=== PATIENT | female | born 1970 | race Hispanic/Latino ===

== ENCOUNTER 2019-05-21 20:47 | Inpatient (IN) ==
[2019-05-21] MEDS ORDERED: NS 1,000 ML IV ONE ×2 (21:24→23:32)
[2019-05-21] MEDS ORDERED: TORADOL IV ONE (21:24)
[2019-05-21] MEDS ORDERED: VALIUM PO ONE (21:24)
[2019-05-21] MEDS ORDERED: REGLAN IV ONE (21:25)
[2019-05-21 21:39] LABS: BASO# 0.09 X1000 (0.0-0.2); BASO% 0.8 % (0.0-0.8); EOS# 0.98 X1000 (0.0-0.7); EOS% 8.8 % (0.0-10.0); HEMOGLOBIN 9.6 g/dL (12.0-16.0); IMM GRAN# 0.06 X1000 (0.0-0.04); IMM GRAN% 0.5 % (0.0-0.5); LYMPH# 3.06 X1000 (1.2-3.4); LYMPH% 27.4 % (20.5-51.1); MCH 26.1 PG (27-31); MCV 81.5 FL (81-99); MONO# 0.57 X1000 (0.11-0.59); MONO% 5.1 % (1.7-9.3); MPV 10.6 FL (7.4-10.4); NEUT# 6.41 X1000 (1.4-6.5); NEUT% 57.4 % (42.2-75.2); PLT 314 X1000 (130-400); RBC 3.68 XMIL (4.2-5.4); RDW 14.9 % (11.5-14.5); WBC 11.17 X1000 (4.8-10.8)
--- NOTE | 2019-05-21 21:55 | Diag Imaging Result Doc PS360 ---
EXAM: CT HEAD W/O CONTRAST INDICATION: DIZZINESS TECHNIQUE: This exam was performed using automated exposure control, adjustment of mA or kV according to patient size, and/or use of iterative reconstruction technique. COMPARISON: None. FINDINGS: There is prominent right occipital lobe encephalomalacia and there is mild left frontal lobe encephalomalacia. There is no definite acute infarct given the limited sensitivity of CT versus MRI. There is no discrete intracranial mass, mass effect, or intracranial hemorrhage. There is very mild left maxillary and left ethmoid sinus mucosal thickening. Surrounding soft tissues and bony structures are essentially unremarkable, otherwise. IMPRESSION: Right occipital and left frontal encephalomalacia. No definite acute intracranial pathology by CT. Electronically signed by John Quiroga 05/21/2019 9:53 PM
[2019-05-21 22:16] LABS: AGAP 13; ALBUMIN 3.5 g/dL (3.5-5.0); ALKALINE PHOSPHATASE 97 U/L (32-104); BUN 75 mg/dL (8-22); CHLORIDE 104 mmol/L (98-107); COSMO 296; CREATININE 3.8 mg/dL (0.5-0.9); ESTIMATED GFR 13; GLUCOSE 192 mg/dL (70-104); GOT 12 U/L (10-30); GPT 5 U/L (10-36); POTASSIUM 5.1 mmol/L (3.5-5.1); SODIUM 134 mmol/L (136-145); TCO2 17 mmol/L (25-35); TOTAL BILIRUBIN < 0.15 mg/dL (0.20-1.00); TOTAL PROTEIN 6.7 g/dL (6.3-8.3)
[2019-05-21] MEDS ORDERED: ZOFRAN IV PRN (23:33)
[2019-05-21] MEDS ORDERED: MORPHINE IV PRN (23:33)
--- NOTE | 2019-05-22 00:10 | EKG Report ---
Test Performed on : 05/21/2019 9:09:13 PM Test Reason : DIZZINESS Blood Pressure : / mmHG Vent. Rate : 084 BPM Atrial Rate : 084 BPM P-R Int : 152 ms QRS Dur : 072 ms QT Int : 386 ms P-R-T Axes : 033 -02 087 degrees QTc Int : 456 ms Normal sinus rhythm. Possible Left atrial enlargement Left ventricular hypertrophy Abnormal ECG No previous ECGs available Unconfirmed Result
[2019-05-22] MEDS ORDERED: APRESOLINE IV ONE (00:54)
[2019-05-22] MEDS ORDERED: APRESOLINE IV PRN (00:57)
[2019-05-22 01:28] LABS: UR CREAT RANDOM 22.9 mg/dL (11-20); UR PROT RANDOM 308.8 mg/dL
[2019-05-22] MEDS: TYLENOL PO PRN ×2 (02:01→14:06)
--- NOTE | 2019-05-22 10:24 | Diag Imaging Result Doc PS360 ---
EXAM: US RENAL 2 (RETROPER) COMPLETE HISTORY: aidee TECHNIQUE: Real-time transabdominal evaluation of the kidneys and bladder. Standard protocol. COMPARISON: None. FINDINGS: Right kidney: 11.7 centimeters in length. Renal echotexture is normal. There is no hydronephrosis, nephrolithiasis, or focal renal mass. Left kidney: 10.8 centimeters in length. Renal echotexture is normal. There is no hydronephrosis, nephrolithiasis, or focal renal mass. Bladder: No focal abnormality is appreciated. IMPRESSION: Normal renal ultrasound. Electronically signed by Marli Rodriguez 05/22/2019 10:22 AM
[2019-05-22] MEDS: HUMULIN R SUBQ SCH ×3 (12:04→22:21)
[2019-05-22] MEDS: NORVASC PO SCH (12:04)
[2019-05-22 12:13] LABS: BASO# 0.08 X1000 (0.0-0.2); BASO% 0.9 % (0.0-0.8); EOS# 0.67 X1000 (0.0-0.7); EOS% 7.3 % (0.0-10.0); HEMATOCRIT 27.8 % (37.0-47.0); IMM GRAN# 0.04 X1000 (0.0-0.04); IMM GRAN% 0.4 % (0.0-0.5); LYMPH# 2.31 X1000 (1.2-3.4); LYMPH% 25.2 % (20.5-51.1); MCH 26.3 PG (27-31); MCHC 32.4 g/dL (33-37); MCV 81.3 FL (81-99); MONO# 0.43 X1000 (0.11-0.59); MONO% 4.7 % (1.7-9.3); MPV 10.2 FL (7.4-10.4); NEUT# 5.65 X1000 (1.4-6.5); NEUT% 61.5 % (42.2-75.2); PLT 298 X1000 (130-400); RBC 3.42 XMIL (4.2-5.4); RDW 14.9 % (11.5-14.5); WBC 9.18 X1000 (4.8-10.8)
[2019-05-22 12:32] LABS: HEMOGLOBIN A1C 9.4 % (4.8-6.0)
[2019-05-22 12:40] LABS: CALCIUM 7.9 mg/dL (8.8-10.2); CREATININE 3.4 mg/dL (0.5-0.9); POTASSIUM 5.1 mmol/L (3.5-5.1)
--- NOTE | 2019-05-22 12:40 | HISTORY AND PHYSICAL ---
PRIMARY CARE PROVIDER: LINA Castillo CHIEF COMPLAINT: Dizziness, headache, nausea that has been intermittent over the past week and progressively worsened. HISTORY OF PRESENTING ILLNESS: This is a 49-year-old female who presents to [facility] ER with a 1-week history of intermittent dizziness, headache, and nausea that have progressively worsened. States these symptoms happened previously about 3 months ago and then resolved. Denied any chest pain, shortness of breath, or vomiting. Workup showed a blood pressure on arrival of 211/94, a BUN of 75 with a creatinine of 3.8, blood sugar was 192. We do not have any previous history of laboratory data to compare. We did do a CT of the head that showed a right occipital and left frontal encephalomalacia, but no definite acute intracranial pathology by CT. Renal ultrasound showed a normal renal ultrasound, so she was admitted for further evaluation and treatment. PAST MEDICAL HISTORY: Hypertension, diabetes type 2. PAST SURGICAL HISTORY: None. FAMILY HISTORY: Reviewed and noncontributory. SOCIAL HISTORY: She currently lives with her family. Denies any tobacco, alcohol or illicit drug use. ALLERGIES: She has no known drug allergies. HOME MEDICATIONS: These will all be held at this time. She has relied on Novolin 70/30 at 1 unit subcutaneously as directed, lisinopril/hydrochlorothiazide 20/12.5 at 2 tablets p.o. daily, meloxicam 15 mg p.o. daily. Again, those are all being held. LABORATORY DATA: Showed a white blood cell count of 11.17, hemoglobin 9.6, hematocrit 30, and platelets 314,000. Sodium 134, potassium 5.1, chloride 104, CO2 of 17, BUN of 75, creatinine 3.8, glucose 192. Troponin was negative. EKG showed normal sinus rhythm at 84. CT of the head showed a right occipital and left frontal encephalomalacia. No definite acute intracranial pathology by CT. Renal ultrasound showed a normal renal ultrasound. REVIEW OF SYSTEMS: She denied any fever, chills, blurred vision. She did have dizziness, headache. Denied any chest pain, coughing, shortness of breath. She denied any abdominal pain, but was positive for nausea. No vomiting, constipation, diarrhea, or burning or hurting with urination. PHYSICAL EXAMINATION: VITAL SIGNS: On arrival, she had a pulse of 83, respirations 16, blood pressure 211/94, saturating 96% on room air. Blood pressure has come down minimally to 199/85. GENERAL: This is a 49-year-old female who is lying in the bed, able to answer most questions appropriately. She understands some Pashto, but does have some difficulty. also at bedside and does some translation and reviewed medical record. HEENT: Normocephalic, atraumatic. Normal ENT inspection. Oropharynx and nares are clear. Eyes: Pupils are equal, round, reactive to light and accommodation. Extraocular movements are intact. NECK: Normal inspection, normal range of motion. LUNGS: Clear to auscultation bilaterally with equal lung expansion and chest wall movement. HEART: With regular rate and rhythm. No murmurs, rubs, or gallops. ABDOMEN: Soft, nontender, nondistended. Bowel sounds are present x4 quadrants. MUSCULOSKELETAL: She had 5/5 strength x4 extremities. NEUROLOGICAL: The cranial nerves 2-12 appear grossly intact. ASSESSMENT: 1. Acute kidney injury. 2. Hypertension. 3. Diabetes type 2. PLAN: She was admitted to the medical unit. We will place on a diabetic diet, pattern blood sugars with sliding scale insulin. We will check a hemoglobin A1c today. We are going to recheck a CBC and BMP today. Place her on Norvasc 10 mg p.o. daily, as we are holding all of her home medications at this time due to her acute kidney injury. She has morphine 2 mg IV every 2 hours p.r.n., normal saline at 125 mL an hour. We will recheck a CBC and BMP in the a.m. We are going to reach out to her primary care physician to see if we can get a baseline creatinine, as it is felt that she may have some underlying chronic kidney disease on top of the acute kidney injury. Also, we will see if we can verify that. Further orders after seen by attending. Dictated by LINA Ramirez for Jose Luis Lakhani MD cc: LINA Ramirez MD Kim Harbin, CRNP
[2019-05-22] MEDS: NS 1,000 ML IV SCH (14:06)
--- NOTE | 2019-05-22 14:58 | PROGRESS NOTE ---
DATE: 05/22/2019 SUBJECTIVE: She is a 49-year-old female with hypertension and diabetes. She came in with an elevated blood pressure. She was not feeling well and she was admitted for treatment. Her blood pressure was extremely elevated. She also had a creatinine that was up to 3.8 with no previous baseline. Reviewing records from [facility], her creatinine was 1.9. This was in 2017. Her hemoglobin and hematocrit was 8.9 and 26. Her triglycerides were a bit high. Her A1c was 8.2. So, in any case this is: PROBLEM LIST: 1. Acute kidney injury or acute on chronic. She is currently stage IV, but I am not sure if this is her true baseline. We will continue hydration, check urine electrolytes and follow. 2. Uncontrolled diabetes. We are going to adjust her insulin. May add some Januvia or Victoza and see how she does. 3. Uncontrolled hypertension. I have put her on Norvasc just because I am trying to avoid lisinopril, hydrochlorothiazide, NSAIDs in this setting. This is a [id number] encounter note with More Stroud. cc: Jose Luis Lakhani MD MTDD
[2019-05-22] MEDS: JANUVIA PO SCH (17:50)
[2019-05-22] MEDS: HUMULIN 70/30 (PARKWAY) SUBQ SCH (17:51)
[2019-05-23] MEDS: HUMULIN R SUBQ SCH (06:19)
[2019-05-23] MEDS: NS 1,000 ML IV SCH (06:21)
[2019-05-23 06:25] LABS: BASO# 0.08 X1000 (0.0-0.2); BASO% 0.9 % (0.0-0.8); EOS# 0.86 X1000 (0.0-0.7); EOS% 9.7 % (0.0-10.0); HEMOGLOBIN 8.2 g/dL (12.0-16.0); IMM GRAN# 0.04 X1000 (0.0-0.04); IMM GRAN% 0.4 % (0.0-0.5); LYMPH# 2.49 X1000 (1.2-3.4); MCH 26.4 PG (27-31); MCHC 31.5 g/dL (33-37); MCV 83.6 FL (81-99); MONO% 5.6 % (1.7-9.3); NEUT# 4.93 X1000 (1.4-6.5); NEUT% 55.4 % (42.2-75.2); PLT 287 X1000 (130-400); RBC 3.11 XMIL (4.2-5.4); RDW 15.1 % (11.5-14.5)
[2019-05-23 06:43] LABS: CALCIUM 7.4 mg/dL (8.8-10.2); CREATININE 3.8 mg/dL (0.5-0.9); POTASSIUM 5.7 mmol/L (3.5-5.1)
[2019-05-23] MEDS: NORVASC PO SCH (09:03)
[2019-05-23] MEDS: HUMULIN 70/30 (PARKWAY) SUBQ SCH ×2 (09:03→16:29)
[2019-05-23] MEDS: JANUVIA PO SCH (09:03)
[2019-05-23] MEDS ORDERED: NS 1,000 ML IV SCH (09:21)
--- NOTE | 2019-05-23 11:44 | PROGRESS NOTE ---
DATE: 05/23/2019 SUBJECTIVE: The patient has no major complaints. OBJECTIVE: Blood pressure is 175/75, heart rate 79, respiratory rate 20, temperature 98.2 degrees, 100% on room air.Cardiovascular: Regular rate and rhythm. Pulmonary: Bilateral breath sounds. Clear to auscultation. GI: Soft, nontender, nondistended. Bowel sounds are positive. LABORATORY DATA: White count 8.9, hemoglobin and hematocrit 8 and 26, platelets 287,000. Potassium is 5.7, bicarb 16, BUN and creatinine are 66 and 3.8, which is not much of a change from yesterday. PROBLEM LIST: 1. I do not think this is acute renal failure. I think she is at her baseline. Really has not improved with hydration. She does have some hyperkalemia. She does have some metabolic acidosis, not any hard indication for dialysis, but she is heading that way. Her GFR is technically less than 15, which would put her at stage 5, but she still has urine output, so we will continue to monitor. She will need a workup with Nephrology. I am not sure if we really need to do that inpatient. I will go ahead 24 hour urine for creatinine clearance and protein and I will discuss the case with Dr. Smyth. 2. Type 2 diabetes. Her blood sugars long-term were not well controlled but better now. She is on Januvia and her regular insulin dosing. DISPOSITION: I think if she is stable, blood pressure is better, we anticipate discharge soon. cc: Jose Luis Lakhani MD
[2019-05-23] MEDS: HUMULIN R (PARKWAY) SUBQ SCH ×3 (12:03→20:27)
[2019-05-23] MEDS: LOKELMA POWDER PACKET PO SCH (12:10)
[2019-05-23] MEDS: APRESOLINE PO SCH ×2 (14:34→18:08)
[2019-05-23] MEDS: MIRALAX PO SCH (20:16)
[2019-05-24] MEDS: HUMULIN R (PARKWAY) SUBQ SCH ×2 (06:10→11:59)
[2019-05-24 06:17] LABS: ALBUMIN 2.8 g/dL (3.5-5.0); CALCIUM 7.2 mg/dL (8.8-10.2); CREATININE 3.9 mg/dL (0.5-0.9); PHOSPHORUS 5.5 mg/dL (2.7-4.5); POTASSIUM 5.4 mmol/L (3.5-5.1)
[2019-05-24] MEDS: HUMULIN 70/30 (PARKWAY) SUBQ SCH (08:18)
[2019-05-24] MEDS: APRESOLINE PO SCH ×2 (08:18→13:44)
[2019-05-24] MEDS: MIRALAX PO SCH (08:18)
[2019-05-24] MEDS: JANUVIA PO SCH (08:18)
[2019-05-24] MEDS: NORVASC PO SCH (08:18)
[2019-05-24] MEDS: TYLENOL PO PRN (11:57)
[2019-05-24 13:27] LABS: UR CREATININE 28.7 mg/dL (11-20); UR PROTEIN 274.7 mg/dL
[2019-05-24 13:30] LABS: CREATININE 3.8 mg/dL (0.7-1.2)
[2019-05-24] MEDS: LOKELMA POWDER PACKET PO SCH (13:44)
[2019-05-24 14:20] LABS: FERRITIN 29 ng/mL (13-150)
[2019-05-24 15:59] VITALS: BP 159/70
[2019-05-24] MEDS ORDERED: FLU VACCINE IM ONE (16:22)
[2019-05-24] MEDS ORDERED: PNEUMOVAX 23 IM ONE (16:22)
--- NOTE | 2019-05-24 19:56 | DISCHARGE SUMMARY ---
ADMISSION DATE: 05/22/2019 DISCHARGE DATE: 05/24/2019 DISCHARGE DIAGNOSES: 1. Chronic renal failure stage 4. 2. Type 2 diabetes, uncontrolled, insulin dependent. 3. Nephrotic range proteinuria. HISTORY OF PRESENT ILLNESS: This is a 49-year-old female who came in from home with complaints of nausea, vomiting, not feeling well. She was found to have a creatinine of 3.8. We really did not have a new baseline for her. Outpatient labs revealed creatinine in the 1.9 kind of range about 2 years ago in 2017. Her A1c was 8.2. Her hemoglobin and hematocrit was 8 and 26. After hydration, there was really no improvement in her kidney function. Renal ultrasound was unremarkable. Her urine electrolytes are really nonspecific. She had a decent amount of protein but data was more consistent with chronic renal failure than acute. Her creatinine hovered between 3.4 and 3.8 at the time of discharge. BUN ranged from 65 to 75. In any case, the patient was felt stable for discharge. I did do a total 24 hour urine with a creatinine clearance of 16 and her total protein 24 hours was 8.2. She probably will need some sort of CEZAR inhibitor, but she had hyperkalemia, mild, 5.4 and I did not feel comfortable discharging her on that, but we did encourage her to follow up with her PCP, Elidia Perrin, and also follow up with Dr. Smyth. I personally had a conversation with him to get that set up. We will continue to follow closely 32 minute discharge. Refer to Elidia Perrin and Yan Smyth. cc: Jose Luis Lakhani MD
== END 2019-05-24 17:18 | disposition home or self-care (01) | DRG 683 ==
LOC: P.ED 20:47 → P.MEDSURG 05-22 02:10
PROVIDERS: ATTEND Internal Medicine